=== PATIENT | male | born 1990 | race Two or more races ===

== ENCOUNTER 2018-12-11 13:40 | Outpatient (CLI) | payer OTHER ==
--- NOTE | 2018-12-12 08:50 | MRI Report ---
Reason: PAIN IN WRIST Procedure Date: 12/11/2018 Accession Number: [id number] / [id number] Procedure: MRI - Wrist LT W/O CPT Code: Final Report FULL RESULT: EXAM: LEFT WRIST MRI WITHOUT CONTRAST EXAM DATE: 12/11/2018 03:20 PM. CLINICAL HISTORY: Left wrist pain. COMPARISON: None. TECHNIQUE: Multiplanar, multisequence T1-weighted and fluid-sensitive sequences of the wrist without contrast. Other: None. FINDINGS: Bones: Focal marrow edema at the distal radial and distal volar aspects of the scaphoid. Mild focal marrow edema at the volar proximal aspect of the trapezium. Mild focal marrow edema at the dorsal proximal aspect of the capitate. No definite acute fracture is seen. No bone lesions. Cartilage: The articular cartilage is unremarkable. The triangular fibrocartilage complex is unremarkable. Ligaments: The scapholunate and lunotriquetral ligaments are intact. The visualized other intrinsic, extrinsic and collateral ligaments are unremarkable. Tendons: The extensor compartment I through and flexor tendons are unremarkable. Musculature: No edema or fatty atrophy. Other: The contents of the carpal tunnel, including the median nerve, are unremarkable. Guyons canal is unremarkable. There is an approximately 1 x 1.1 x 0.6 cm multiseptated ganglion or synovial cyst volar to the radioscaphoid joint and between the flexor carpi radialis tendon and the radial neurovascular bundle. No joint effusions. The subcutaneous tissues are unremarkable. IMPRESSION: 1. Focal marrow edema at the distal radial and distal volar aspect of the scaphoid, volar proximal aspect of the trapezium, and dorsal proximal aspect of the capitate. If the patient has had recent wrist trauma, the findings may represent bone contusion. No definite fracture line is seen. 2. Multiseptated ganglion or synovial cyst volar to the radioscaphoid joint and between the flexor carpi radialis tendon and the radial neurovascular bundle. [facility]
--- NOTE | 2018-12-12 08:54 | MRI Report ---
Reason: PAIN IN WRIST Procedure Date: 12/11/2018 Accession Number: [id number] / [id number] Procedure: MRI - Wrist RT W/O CPT Code: Final Report FULL RESULT: EXAM: RIGHT WRIST MRI WITHOUT CONTRAST EXAM DATE: 12/11/2018 03:19 PM. CLINICAL HISTORY: Pain in wrist. COMPARISON: None. TECHNIQUE: Multiplanar, multisequence T1-weighted and fluid-sensitive sequences of the wrist without contrast. Other: None. FINDINGS: Bones and articular surfaces: No acute fracture. No destructive bone lesion. No erosive change. No significant joint effusion. No osteochondral lesions. No significant articular cartilage defects. Musculotendinous structures: Visualized flexor and extensor tendons appear intact. No evidence of significant tendinosis or tenosynovitis. No muscle edema, atrophy or fatty replacement. Ligaments: No scapholunate or lunatotriquetral diastases. Triangular fibrocartilage grossly intact. IMPRESSION: No MRI abnormalities in the wrist. [facility]
== END 2018-12-11 13:41 | disposition home or self-care (01) ==
LOC: DI 13:40
PROVIDERS: ATTEND Registered Nurse Diabetes Educator
DX: R60.0 Localized edema (principal); M25.832 Other specified joint disorders, left wrist; M25.531 Pain in right wrist

== ENCOUNTER 2019-12-19 18:21 | Emergency (ER) | payer OTHER ==
[2019-12-19 18:29] VITALS: BP 137/71
--- NOTE | 2019-12-19 18:53 | ED Physician Documentation ---
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 No loss of taste or smell. No known sick contacts. No production to the cough. No shortness of breath. No measured fevers. Review of Systems Constitutional: reports: Chills, Fatigue Nose: reports: Rhinorrhea / runny nose Throat: reports: Sore throat Respiratory: reports: Cough. denies: Dyspnea GI: denies: Vomiting, Diarrhea PD PAST MEDICAL HISTORY - Allergies Allergies/Adverse Reactions: Allergies Allergy/AdvReac Type Severity Reaction Status Date / Time No Known Drug Allergies Allergy Verified 12/19/19 18:28 PD ED PE NORMAL - Vitals Vital signs reviewed: Yes - General General: Alert and oriented X 3, No acute distress - HEENT HEENT: Pharynx benign - Neck Neck: Supple, no meningeal sign, No bony TTP - Respiratory Respiratory: No respiratory distress - Derm Derm: No rash - Neuro Neuro: Alert and oriented X 3, Normal speech Results - Vitals Vitals: Vital Signs - 24 hr 12/19/19 18:24 Temperature 37 C Heart Rate 82 Respiratory 18 Rate Blood Pressure 137/71 H O2 Saturation 97 Oxygen O2 Source Room air PD MEDICAL DECISION MAKING - ED course ED course: 29-year-old gentleman with viral syndrome, appears well. Covid test is sent. Advised on home quarantining until results available. Departure - Departure Disposition: 01 Home, Self Care Clinical Impression: Viral syndrome Condition: Good Record reviewed to determine appropriate education?: Yes Instructions: ED Viral Syndrome Comments: You have a Covid test pending. You need to self quarantine until the result is done and negative. Do not leave your house. Do not get near anybody. The results should be done in 48 to 72 hours. We will call with a positive result, the fastest way to get a negative result for confirmation though is to go to the hospital website at [email or web address], click on the my [facility] tab and sign up for the patient portal. If any friends or family get sick and would like to have a Covid test done, but do not have signs or symptoms that would necessitate being hospitalized, we encourage testing through our coronavirus swabbing station, call [phone] to schedule an appointment. Forms: Activity restrictions
== END 2019-12-19 18:57 | disposition home or self-care (01) ==
LOC: ED 18:21
DX: B34.9 Viral infection, unspecified (principal); Z20.828 Contact with and (suspected) exposure to other viral communicable diseases
CPT/HCPCS: 99282; 99283